=== PATIENT | female | born 1960 | race Caucasian/White ===

== ENCOUNTER 2016-04-28 17:08 | Inpatient (IN) | payer BC, SELFPAY ==
--- NOTE | ~2016-04-28 | HP ---
Unit #: [id number] #: [id number] Patient: PALAK GARCÍA [id number] [address] [place], [place] [address] [id number] E MR#: [id number] NAME: PALAK GARCÍA. ROOM: Age: 55 Sex: F Admission Date: 04/28/2016 : 1960 Attending Physician: Juan Leary M.D. Primary Care Physician: [facility]. HISTORY AND PHYSICAL CHIEF COMPLAINT Possible blood clot in the lung, sent by her primary care physician. HISTORY OF PRESENT ILLNESS The patient is a 55-year-old female with a history of diabetes and hypertension, who had a left knee medial meniscal tear repair on April 16. She had a left knee medial meniscectomy and extensive debridement, arthroplasty medial femoral condyle and hinging articular surface imminently to break off and become a loose body, and synovectomy. The patient presented to the primary care physician complaining of shortness of breath for four days. The patient also complains of intractable pain in the left knee associated with the surgery. The patient had a CT of the chest that showed patient had a right upper lobe pulmonary embolism. Venous Doppler is negative for any clot. The patient is being admitted for the above reasons. The patient continues to smoke cigarettes one and a half packs per day. She denies any productive cough, chest pain, palpitations, diaphoresis, or fever. The patient is being admitted for the above reasons. Patient also has a history of factor V deficiency with a strong family history of clots in the family. PAST MEDICAL HISTORY 1. Hypertension. 2. Diabetes. 3. Factor V deficiency. 4. Depression. PAST SURGICAL HISTORY 1. Cholecystectomy. 2. Hysterectomy. 3. Bladder repair. 4. Bilateral carpal tunnel release. 5. Left knee meniscectomy. HOME MEDICATIONS 1. Glucophage. 2. Cozaar. 3. Zoloft. 4. Toprol. 5. Claritin. 6. Aspirin. ALLERGIES PENICILLIN, LASIX, AND STATINS. Unit #: [id number] #: [id number] Patient: PALAK GARCÍA FAMILY HISTORY Bone marrow cancer in the parents. SOCIAL HISTORY Continues to smoke one and a half packs of cigarettes per day. Denies alcohol or any illicit drug abuse. REVIEW OF SYSTEMS A 14-point review of systems was performed and only pertinent positive findings are described above. The remaining are negative. PHYSICAL EXAMINATION GENERAL: Patient is lying in bed not in acute distress. VITAL SIGNS: Temperature 98.1, pulse 86, respiratory rate 16, blood pressure 111/68, and saturating 98% on room air. HEENT: Head atraumatic, normocephalic. Pupils equal, round, and reactive to light and accommodation. Extraocular movements are intact. Moist mucous membranes. NECK: Supple. No JVD. LUNGS: Decreased air entry at the bases. HEART: Regular rate and rhythm. ABDOMEN: Soft. Positive bowel sounds. EXTREMITIES: Status post left knee meniscectomy and calf tenderness. NEUROLOGIC: Alert, awake, and oriented. No gross focal motor deficit. DIAGNOSTIC STUDIES LABORATORY: Glucose 222, BUN 12, creatinine 0.7, sodium 138, potassium 4.3, chloride 101, bicarb 30, calcium 9.6, total protein 6.9, albumin 3.5, total bilirubin 0.7, AST 14, ALT 11, and alkaline phosphatase 93. INR is 1. Troponin less than 0.05. WBC 8.6, hemoglobin 13.8, hematocrit 42, and platelets 222,000. IMAGING: CT of the chest shows right upper lobe pulmonary embolism. Venous Doppler is negative for DVT. ASSESSMENT 1. Pulmonary embolism. 2. Status post left knee surgery. 3. Factor V deficiency. 4. Emphysema. PLAN Admit patient to inpatient with telemetry. Continue with anticoagulation with Lovenox 1 mg/kg subcutaneous q.12. Will check the echo for the straining. Check the factor V level. Continue with DuoNebs. Repeat the labs in the morning. Continue with nicotine patch for smoking cessation. Further recommendations will follow. Dictated by Ishan Monsalve TD: 04/28/2016 19:40 JOB #: [id number] Unit #: [id number] #: [id number] Patient: PALAK GARCÍA HISTORY AND PHYSICAL X X HISTORY AND PHYSICAL
--- NOTE | ~2016-04-28 | DS ---
Unit #: [id number] #: [id number] Patient: PALAK GARCÍA [id number] [address] [place], [place] [address] [id number] I MR#: [id number] NAME: APLAK GARCÍA. ROOM: 334 Age: 55 Sex: F Admission Date: 04/28/2016 : 1960 Discharge Date: 04/29/2016 Attending Physician: Renny Verma M.D. Primary Care Physician: [facility] DISCHARGE SUMMARY DISCHARGE DIAGNOSES 1. Pulmonary embolism on CTA per pulmonary embolism protocol. The pulmonary embolism was in the right upper lobe without any evidence of right heart strain. No evidence of pulmonary infarction. 2. Status post total knee replacement, April 16. 3. Stated history of factor V deficiency. 4. Emphysema, stable without acute exacerbation. CONSULTANTS None. DIAGNOSTIC STUDIES IMAGING: Consists of CT chest with contrast on 04/28/2016. Impression: The study is positive for acute pulmonary thromboembolism to the right upper lobe. There is no evidence of right heart strain and there is no evidence of pulmonary infarction. Findings were relayed to Ann in Dr. Gustafson' office at the time of this dictation. Also noted, but not mentioned in the report is potentially a nodule within the left lobe of the thyroid gland measuring up to about 8 mm in size. This can be better assessed with dedicated thyroid ultrasound on a nonemergent outpatient basis. ADDENDUM, JOB [id number] LABORATORY: BMP: Glucose 144, BUN 14, creatinine 0.6, sodium 144, potassium 4.6, chloride 105, CO2 27, calcium 9.7, total protein 6.9, albumin 3.5, total bilirubin 0.7, AST 14, ALT 19, alkaline phosphatase 93. The patient had PT assessed which was 10.7. INR is 1.0. PTT is 26.8. CBC: WBC 7.6, RBC 4.85, hemoglobin 13.6, hematocrit 31.9, MCV 86.5, MCH 28.2, MCHC 32.5, RDW 14.4, platelets 207, MPV 8.7. IMAGING: Ultrasound of the lower extremities. Impression is negative unilateral left lower extremity venous Doppler. No evidence of a DVT. Complex appearing Milan cyst about 5 x 1.5 x 2 cm in size. HOSPITAL COURSE The patient is a pleasant 55-year-old female with past medical history of diabetes and essential hypertension who had a left medial meniscus tear repair on April 16. She had a left knee medial meniscectomy and extensive debridement, arthroplasty medial femoral condyle and hinging articular surface imminently to break off and became a loose body and synovectomy. The patient presented to her primary care physician complaining of shortness of breath for four days. The patient also complained of intractable pain in the left knee associated with the surgery. The patient had CT of the chest that showed the patient had a Unit #: [id number] #: [id number] Patient: PALAK GARCÍA right upper lobe pulmonary embolism. Venous Doppler was negative for any clot. The patient was admitted for pulmonary embolism. She continues to smoke one and a half packs daily. We spoke about this. The patient tells me that she is ready to quit and will be utilizing a nicotine patch for it. The patient does have history of factor V deficiency with a strong family history of clots in the family but she has not seen a consulting services manager in the past. At this time, the patient is stable and I will be discharging the patient and checking for the hart of Eliquis. If this is acceptable, I will be discharging the patient on Eliquis. If not, we will opt for Xarelto. DISCHARGE CONDITION Stable. DISCHARGE FOLLOWUP To follow up with family doctor within one to two weeks. I have spoken with consulting services manager, Dr. Gomez, who states that patient is stable for discharge. He does not see her in the hospital but their office will follow up with her outpatient for any further workup and to follow the factor V deficiency. DISPOSITION To home. DIET Heart Healthy with consistent carb or per [place] [employer] recommended diet. DISCHARGE MEDICATIONS 1. Tramadol 60 mg orally three times daily. 2. Aspirin 325 mg orally daily. 3. Metoprolol 25 mg orally daily. 4. Loratadine 10 mg orally daily. 5. Sertraline 100 mg orally daily. 6. Metformin 500 mg orally daily. This can be restarted on May 01, as she had gotten contrast for that CT chest. 7. Losartan 25 mg orally daily. 8. At this time, I am checking for Eliquis. If it is approved, she can have 10 mg orally twice daily for seven days and then 5 mg daily there on after. I have given her a prescription for three months. If this is not acceptable, then she can have Xarelto. A starter pack will be given, 15 mg orally twice daily for 21 days and then 20 mg orally daily. I will give her refills of three months. So, either Eliquis or Xarelto, whichever one is affordable. Dictated by... Haydee Redman PA-C for Ishan Sampson/bertram TD: 04/30/2016 07:40 JOB #: [id number] Unit #: [id number] #: [id number] Patient: ALLEN GARCÍAFATOUMATA Abad DISCHARGE SUMMARY X X DISCHARGE SUMMARY
--- NOTE | ~2016-04-28 | EKG ---
PATIENT: PALAK GARCÍA UNIT #: [id number] Ventricular Rate: 74 BPM Atrial Rate: 74 BPM P-R Interval: 188 ms QRS Duration: 80 ms Q-T Interval: 398 ms QTC Calculation(Bezet): 441 ms P [place]: 55 degrees Calculated R [place]: 66 degrees Calculated T [place]: 84 degrees Diagnosis Line: Normal sinus rhythm Diagnosis Line: Normal ECG Diagnosis Line: When compared with ECG of 09-APR-2016 11:12, Diagnosis Line: No significant change was found Diagnosis Line: Confirmed by GIFTY MOULTON MD ([id number]) on 04/30/2016 Diagnosis Line: 5:31:38 PM INTERPRETING MD: KENNEY GALLAGHER
[2016-04-28 16:58] LABS: BASOPHIL# 0.1 X10e3 (0-0.3); BASOPHIL% 0.9 % (0-2.5); EOSINOPHIL# 0.2 X10e3 (0-0.7); EOSINOPHIL% 1.9 % (0.0-7.0); HEMOGLOBIN 13.8 gm/dL (12.0-16.0); LYMPHOCYTE# 1.6 X10e3 (1.0-3.5); LYMPHOCYTE% 18.9 % (17.0-45.0); MEAN CELL VOLUME 87.1 FL (83-96); MEAN CORPUSCULAR HEMOGLOBIN 28.5 PG (28-34); MEAN CORPUSCULAR HGB CONC 32.7 g/dL (30-36); MEAN PLATELET VOLUME 8.9 FL (6.5-11.5); MONOCYTE# 0.4 X10e3 (0-1.0); MONOCYTE% 4.7 % (3.0-12.0); NEUTROPHIL# 6.3 X10e3 (1.5-7.1); NEUTROPHIL% 73.6 % (40-75); PLATELET COUNT 222 X10e3 (140-420); RED BLOOD COUNT 4.82 X10e (3.90-5.30); RED CELL DISTRIBUTION WIDTH 14.3 % (11.0-15.5); WHITE BLOOD COUNT 8.6 X10e3 (4.0-10.5)
[2016-04-28 17:05] LABS: DIFF IND NO
[~2016-04-28 17:08] MED LIST changes: -ELIQUIS5 MG PO; -NICOTINE TRANSD21 MG TOP; -PROTONIX PO
[2016-04-28 17:09] LABS: PARTIAL THROMBOPLASTIN TIME 26.8 SECONDS (23.5-31.3); PROTHROMBIN TIME (PATIENT) 10.7 SECONDS (9.6-11.5)
[2016-04-28 17:19] LABS: ALBUMIN SERUM 3.5 g/dL (3.5-5.0); ALKALINE PHOSPHATASE 93 U/L (32-92); ALT (SGPT) 11 U/L (10-40); AST (SGOT) 14 U/L (10-42); BILIRUBIN,TOTAL 0.7 mg/dL (0.2-2.0); BLOOD UREA NITROGEN 12 mg/dL (9-23); BUN/CREATININE RATIO 17.14; CALCIUM SERUM 9.6 mg/dL (8.4-10.2); CARBON DIOXIDE 30 mmol/L (22-31); CHLORIDE 101 mmol/L (100-111); CREATININE SERUM 0.7 mg/dL (0.6-1.4); GLOM FILT RATE Estimated ABOVE60 mL/min (>60); GLUCOSE FASTING 222 mg/dL (70-110); POTASSIUM 4.3 mmol/L (3.5-5.1); PROTEIN TOTAL SERUM 6.9 g/dL (6.0-8.3); SODIUM 138 mmol/L (135-145)
[2016-04-28 17:25] LABS: BILIRUBIN, DIRECT <0.1 mg/dL (0.0-0.2); BILIRUBIN,INDIRECT 0.6 mg/dL (0.0-0.9)
[2016-04-28 18:41] LABS: POC - CKMB <1.0 ng/mL (0.0-7.9); POC - TROPONIN <0.05 ng/mL (<=0.05)
[2016-04-29 06:25] LABS: BASOPHIL# 0.1 X10e3 (0-0.3); BASOPHIL% 1.3 % (0-2.5); EOSINOPHIL# 0.3 X10e3 (0-0.7); EOSINOPHIL% 3.5 % (0.0-7.0); HEMATOCRIT 41.9 % (35.0-45.0); HEMOGLOBIN 13.6 gm/dL (12.0-16.0); LYMPHOCYTE# 2.1 X10e3 (1.0-3.5); MEAN CELL VOLUME 86.5 FL (83-96); MEAN CORPUSCULAR HEMOGLOBIN 28.2 PG (28-34); MEAN CORPUSCULAR HGB CONC 32.5 g/dL (30-36); MEAN PLATELET VOLUME 8.7 FL (6.5-11.5); MONOCYTE# 0.4 X10e3 (0-1.0); MONOCYTE% 5.9 % (3.0-12.0); NEUTROPHIL# 4.8 X10e3 (1.5-7.1); NEUTROPHIL% 62.3 % (40-75); PLATELET COUNT 207 X10e3 (140-420); RED BLOOD COUNT 4.85 X10e (3.90-5.30); RED CELL DISTRIBUTION WIDTH 14.4 % (11.0-15.5); WHITE BLOOD COUNT 7.6 X10e3 (4.0-10.5)
[2016-04-29 06:32] LABS: DIFF IND NO
[2016-04-29 07:12] LABS: BLOOD UREA NITROGEN 14 mg/dL (9-23); BUN/CREATININE RATIO 23.33; CALCIUM SERUM 9.7 mg/dL (8.4-10.2); CARBON DIOXIDE 27 mmol/L (22-31); CHLORIDE 105 mmol/L (100-111); CREATININE SERUM 0.6 mg/dL (0.6-1.4); GLOM FILT RATE Estimated ABOVE60 mL/min (>60); GLUCOSE FASTING 141 mg/dL (70-110); POTASSIUM 4.6 mmol/L (3.5-5.1); SODIUM 144 mmol/L (135-145)
[2016-04-29] MEDS ORDERED: NICOTINE TRANSD21 MG TOP (12:47)
[2016-04-29] MEDS ORDERED: PROTONIX PO (12:49)
[2016-04-29] MEDS ORDERED: ELIQUIS5 MG PO ×2 (12:56→12:57)
== END 2016-04-29 16:08 | disposition home or self-care (01) | DRG 176 ==
LOC: CED 17:08 → CEDOF 18:50 → C3A PCU 20:30
PROVIDERS: Emergency Medicine; Internal Medicine
PROC: B24BYZZ Ultrasonography of Heart with Aorta using Other Contrast (ICD-10-PCS; principal; 2016-04-29)
DX: I26.99 Other pulmonary embolism without acute cor pulmonale (principal); D68.2 Hereditary deficiency of other clotting factors; I10 Essential (primary) hypertension; E11.9 Type 2 diabetes mellitus without complications; Z79.84 Long term (current) use of oral hypoglycemic drugs; F32.9 Major depressive disorder, single episode, unspecified; Z90.49 Acquired absence of other specified parts of digestive tract; Z90.710 Acquired absence of both cervix and uterus; Z79.82 Long term (current) use of aspirin; Z88.0 Allergy status to penicillin; F17.210 Nicotine dependence, cigarettes, uncomplicated; J43.9 Emphysema, unspecified; Z96.659 Presence of unspecified artificial knee joint
CPT/HCPCS: 36415; 74230; 80048; 80076; 82553; 84484; 85025; 85220; 85610; 85730; 92610; 92611; 93005; 93306; 94760; 96372; 97162; 99285; G8996-GN; G8997-GN; G8998-GN; J1650

== ENCOUNTER → 2016-04-28 | Outpatient (CLI) | payer BC ==
[~2016-04-28] MED LIST: ACETAMINOPHEN PR; ALBUTEROL17 GM INH; BACTRIM DS TABL1 TAB PO; CLARITIN10 M2 PO; COZAAR; ELIQUIS5 MG PO; GLUCOPHAGE500 MG PO; MEDROL PO; NICOTINE TRANSD21 MG TOP; PROTONIX PO; ST. JOSEPH ASP325 MG PO; TOPROL XL; TRAMADOL HCL50 M2 PO; ZOLOFT100 MG PO
--- NOTE | ~2016-04-28 | US85 ---
[facility] A Service of [facility] RADIOLOGY TEXT RESULTS PATIENT: PALAK GARCÍA LOCATION: [facility] : 58 UNIT #: [id number] AGE: [address]: Hakeem Gustafson MD SEX: F ORDER DR: [id number] [facility] [address] [place], [place] [address] [id number] O MR#: [id number] Acc #: [id number] NAME: PALAK GARCÍA. : 1960 SEX: F STUDY DATE/TIME: 04/28/2016 14:42 UNIT: CCA ROOM: STUDY DESCRIPTION: [facility] [employer] Attending Physician: Hakeem Gustafson M.D. Referring Physician: Hakeem Gustafson M.D. Ordering Physician: Hakeem Gustafson M.D. [facility] REPORT This report is preliminary unless electronic signature is present EXAM Bilateral lower extremity venous Doppler. DATE OF EXAM 04/28/2016 CLINICAL HISTORY Left leg pain for 2 days, left calf pain and swelling. PROCEDURE Unilateral left lower extremity venous Doppler with hebert-scale imaging, color-Doppler flow imaging and Doppler waveform analysis. FINDINGS There is normal color flow, compressibility and where appropriate, respiratory phasicity and/or augmentation throughout the entire left lower extremity deep venous system. There is a large Milan cyst, about 5 x 1.5 x 2 cm in size, and complex in appearance. IMPRESSION 1. Negative unilateral left lower extremity venous Doppler. No evidence of a DVT. 2. Complex appearing Milan cyst, about 5 x 1.5 x 2 cm in size. Dictated by... Hussain Akhtar M.D. THIS IS AN ELECTRONICALLY VERIFIED REPORT Hussain Akhtar M.D. at 04/29/2016 11:48 AM TEV/jt [facility] A Service of [facility] RADIOLOGY TEXT RESULTS PATIENT: PALAK GARCÍA LOCATION: [facility] : 58 UNIT #: [id number] AGE: [address]: Hakeem Gustafson MD SEX: F ORDER DR: TD: 04/28/2016 21:57 JOB #: [id number] MEDICAL IMAGING REPORT COPY
--- NOTE | ~2016-04-28 | CT55 ---
[facility] A Service [facility] RADIOLOGY TEXT RESULTS PATIENT: PALAK GARCÍA LOCATION: [facility] : 58 UNIT #: [id number] AGE: [address]: Hakeem Gustafson MD SEX: F ORDER DR: [id number] [facility] [address] [place], [place] [address] [id number] O MR#: [id number] Acc #: [id number] NAME: PALAK GARCÍA. : 1960 SEX: F STUDY DATE/TIME: 04/28/2016 14:05 UNIT: [facility] ROOM: STUDY DESCRIPTION: CT Chest W Con Attending Physician: Hakeem Gustafson M.D. Referring Physician: Hakeem Gustafson M.D. Ordering Physician: Hakeem Gustafson M.D. Primary Care Physician: [facility] MEDICAL IMAGING REPORT This report is preliminary unless electronic signature is present EXAM CT of the chest with contrast. DATE OF EXAM 04/28/2016 INDICATION Spitting up blood as well as pain and swelling in the left calf. Started last week. TECHNIQUE Axial CT images were obtained from the thoracic inlet through the dome of the diaphragm following the administration of intravenous contrast material. NOTE: This CT exam was performed with one or more of the following radiation dose reduction techniques: automatic exposure control, adjustment of mA and/or kV according to patient size, and iterative reconstruction. FINDINGS The study is positive for acute pulmonary thromboembolus involving pulmonary arterial branches to the right upper lobe. These appear to be nonocclusive thrombi. There was no evidence of right heart strain. There is no pleural or pericardial effusion. The thyroid gland, trachea and esophagus are within normal limits. Lungs appear clear with no focal infiltrates identified. Images through the upper abdomen demonstrate changes of prior cholecystectomy. No acute abnormalities are seen within the upper abdomen. Review of bony windows does not demonstrate any aggressive osseous abnormalities. IMPRESSION 1. The study is positive for acute pulmonary thromboembolus to the right [facility] A Service of [facility] RADIOLOGY TEXT RESULTS PATIENT: PALAK GARCÍA LOCATION: [facility] : 58 UNIT #: [id number] AGE: [address]: Hakeem Gustafson MD SEX: F ORDER DR: upper lobe. There is no evidence of right heart strain, and there is no evidence of pulmonary infarction. Findings were relayed to Ann in Dr. Gustafson's office at the time of this dictation. 2. Also noted but not mentioned in the report is potentially a nodule within the left lobe of the thyroid gland, measuring up to about 8 mm in size and this can be better assessed with dedicated thyroid ultrasound on a nonemergent outpatient basis. Dictated by... Cherelle Rojas M.D. THIS IS AN ELECTRONICALLY VERIFIED REPORT Cherelle Rojas M.D. at 04/29/2016 10:48 AM MARIO/massiel TD: 04/28/2016 19:14 JOB #: [id number] MEDICAL IMAGING REPORT COPY
[2016-04-28 14:20] LABS: POC - CREATININE 0.81 mg/dL (0.44-1.03); POC - GFR >60.0 mL/min (>60)
== END | disposition home or self-care (01) ==
LOC: CCAT 12:40
PROVIDERS: Orthopaedic Surgery
DX: R04.2 Hemoptysis (principal); M79.89 Other specified soft tissue disorders; M79.605 Pain in left leg; I26.99 Other pulmonary embolism without acute cor pulmonale; M71.22 Synovial cyst of popliteal space [Baker], left knee
CPT/HCPCS: 71260; 82565; 93971; Q9967

== ENCOUNTER 2016-09-24 13:51 | Emergency (ER) | payer MEDICAID ==
[~2016-09-24] VITALS: Ht 160 cm; Wt 88.5 kg
--- NOTE | ~2016-09-24 | CT71 ---
[facility] A Service [facility] RADIOLOGY TEXT RESULTS PATIENT: PALAK GARCÍA LOCATION: [facility] : 58 UNIT #: [id number] AGE: [address]: Akash Mazariegos MD SEX: F ORDER DR: [id number] [place] [address] [place], [place] [address] [id number] E MR#: [id number] Acc #: [id number] NAME: PALAK GARCÍA. : 1960 SEX: F STUDY DATE/TIME: 09/24/2016 16:15 UNIT: [facility] ROOM: STUDY DESCRIPTION: CT Head Wo Contrast Attending Physician: Akash Mazariegos M.D. Ordering Physician: Akash Mazariegos M.D. Primary Care Physician: Neida Crawford M.D. MEDICAL IMAGING REPORT This report is preliminary unless electronic signature is present EXAM CT scan of the brain without contrast INDICATIONS Dizziness for 2 days. TECHNIQUE Axial noncontrast images were obtained from the skull base to the vertex. This CT exam was performed with one or more of the following radiation dose reduction techniques: Automatic exposure control, adjustment of mA and/or kV according to patient size, and iterative reconstruction. FINDINGS Ventricular size and configuration are normal. There is no evidence of acute infarct or hemorrhage. There are no extraaxial fluid collections. No mass lesion or mass effect is seen. There are no skull fractures. IMPRESSION Normal noncontrast head CT. Dictated by... Edmond Alva M.D. THIS IS AN ELECTRONICALLY VERIFIED REPORT Edmond Alva M.D. at 09/25/2016 8:16 AM FEL/psc TD: 09/24/2016 21:49 JOB #: [id number] MEDICAL IMAGING REPORT [facility] A Service [facility] RADIOLOGY TEXT RESULTS PATIENT: PALAK GARCÍA LOCATION: [facility] : 58 UNIT #: [id number] AGE: [address]: Akash Mazariegos MD SEX: F ORDER DR: Page 1 of 1 COPY
--- NOTE | ~2016-09-24 | CT16 ---
[facility] A Service of [facility] RADIOLOGY TEXT RESULTS PATIENT: PALAK GARCÍA LOCATION: [facility] : 58 UNIT #: [id number] AGE: [address]: Akash Mazariegos MD SEX: F ORDER DR: [id number] [facility] [address] [place], [place] [address] [id number] E MR#: [id number] Acc #: [id number] NAME: PALAK GARCÍA. : 1960 SEX: F STUDY DATE/TIME: 09/24/2016 16:19 UNIT: [facility] ROOM: STUDY DESCRIPTION: CT Angio Chest for PE Attending Physician: Akash Maazriegos M.D. Ordering Physician: Akash Mazariegos M.D. Primary Care Physician: Neida Crawford M.D. MEDICAL IMAGING REPORT This report is preliminary unless electronic signature is present EXAM Chest CTA, 09/24/2016 INDICATION Shortness of air and cough with chest pain and dizziness over the last 2 days. Some hemoptysis this morning. Prior history of pulmonary embolism. TECHNIQUE Axial images were obtained through the chest following IV contrast administration. 3-D reformats were obtained. Comparison made with 04/28/2016. This CT exam was performed with one or more of the following radiation dose reduction techniques: automatic exposure control, adjustment of mA and/or kV according to patient size, and iterative reconstruction. FINDINGS No definite pulmonary embolism is seen today, and there is no aortic dissection. There is no pleural or pericardial effusion. No adenopathy is seen. The lungs remain clear. Upper abdomen shows changes of cholecystectomy. IMPRESSION No pulmonary embolism or aortic dissection. No active disease in the chest. Dictated by... Jaun Larry Jr., M.D. THIS IS AN ELECTRONICALLY VERIFIED REPORT Juan Larry Jr., M.D. at 09/25/2016 4:34 PM [facility] A Service [facility] RADIOLOGY TEXT RESULTS PATIENT: PALAK GARCÍA LOCATION: [facility] : 58 UNIT #: [id number] AGE: [address]: Akash Mazariegos MD SEX: F ORDER DR: JALYN/jose manuel TD: 09/24/2016 21:40 JOB #: [id number] MEDICAL IMAGING REPORT Page 1 of 1 COPY
--- NOTE | ~2016-09-24 | CR72 ---
[facility] A Service of [facility] RADIOLOGY TEXT RESULTS PATIENT: PALAK GARCÍA LOCATION: [facility] : 58 UNIT #: [id number] AGE: [address]: Akash Mazariegos MD SEX: F ORDER DR: [id number] [facility] [address] [place], [place] [address] [id number] E MR#: [id number] Acc #: [id number] NAME: PALAK GARCÍA. : 1960 SEX: F STUDY DATE/TIME: 09/24/2016 14:42 UNIT: [facility] ROOM: STUDY DESCRIPTION: CR Chest Single View Portable Attending Physician: Akash Mazariegos M.D. Ordering Physician: Akash Mazariegos M.D. Primary Care Physician: Neida Crawford M.D. MEDICAL IMAGING REPORT This report is preliminary unless electronic signature is present EXAM Portable chest x-ray, 09/24/2016. HISTORY Dyspnea. Short of air. Dizziness. Spitting up blood today. AP radiograph of the chest is presented. COMPARISON STUDIES 08/16/2011 FINDINGS Degenerative changes in the spine. No acute appearing bone abnormality. The heart is normal in size. Mediastinal contours are normal. Lungs appear slightly hyperinflated. Correlate with any known chronic airway disease. Patient gives a history of tobacco usage. The mild hyperinflation of the lungs may reflect underlying COPD. There is no evidence of acute pulmonary disease, pleural effusion or pneumothorax. No suspicious nodule. Dictated by... Jose Geiger M.D. THIS IS AN ELECTRONICALLY VERIFIED REPORT Jose Geiger M.D. at 09/28/2016 10:43 AM GAY/massiel TD: 09/24/2016 19:24 JOB #: [id number] [facility] A Service [facility] RADIOLOGY TEXT RESULTS PATIENT: PALAK GARCÍA LOCATION: [facility] : 58 UNIT #: [id number] AGE: [address]: Akash Mazariegos MD SEX: F ORDER DR: MEDICAL IMAGING REPORT Page 1 of 1 COPY
--- NOTE | ~2016-09-24 | EKG ---
PATIENT: PALAK GARCÍA UNIT #: [id number] Ventricular Rate: 75 BPM Atrial Rate: 75 BPM P-R Interval: 156 ms QRS Duration: 76 ms Q-T Interval: 388 ms QTC Calculation(Bezet): 433 ms P [place]: 29 degrees Calculated R [place]: 39 degrees Calculated T [place]: 77 degrees Diagnosis Line: Normal sinus rhythm Diagnosis Line: Normal ECG Diagnosis Line: When compared with ECG of 28-APR-2016 16:57, Diagnosis Line: No significant change was found Diagnosis Line: Confirmed by LUCAS MONTERO MD ([id number]) on 09/26/2016 Diagnosis Line: 8:22:03 AM INTERPRETING MD: KYLAH GALLAGHER
[~2016-09-24 13:51] MED LIST changes: +ELIQUIS5 MG PO; +NICOTINE TRANSD21 MG TOP; +PROTONIX PO
[2016-09-24 14:59] LABS: BASOPHIL% 0.6 % (0-2.5); EOSINOPHIL# 0.2 X10e3 (0-0.7); EOSINOPHIL% 2.1 % (0.0-7.0); HEMATOCRIT 44.1 % (35.0-45.0); HEMOGLOBIN 14.7 gm/dL (12.0-16.0); LYMPHOCYTE# 2.2 X10e3 (1.0-3.5); LYMPHOCYTE% 29.5 % (17.0-45.0); MEAN CELL VOLUME 85.9 FL (83-96); MEAN CORPUSCULAR HEMOGLOBIN 28.6 PG (28-34); MEAN CORPUSCULAR HGB CONC 33.3 g/dL (30-36); MEAN PLATELET VOLUME 8.9 FL (6.5-11.5); MONOCYTE# 0.4 X10e3 (0-1.0); MONOCYTE% 5.2 % (3.0-12.0); NEUTROPHIL# 4.8 X10e3 (1.5-7.1); NEUTROPHIL% 62.6 % (40-75); PLATELET COUNT 236 X10e3 (140-420); RED BLOOD COUNT 5.13 X10e (3.90-5.30); RED CELL DISTRIBUTION WIDTH 14.5 % (11.0-15.5); WHITE BLOOD COUNT 7.6 X10e3 (4.0-10.5)
[2016-09-24 15:01] LABS: DIFF IND NO
[2016-09-24 15:10] LABS: POC - CKMB <1.0 ng/mL (0.0-7.9); POC - TROPONIN <0.05 ng/mL (<=0.05)
[2016-09-24 15:21] LABS: PROTHROMBIN TIME (PATIENT) 11.3 SECONDS (10.0-11.7)
[2016-09-24 15:30] LABS: BILIRUBIN, DIRECT 0.1 mg/dL (0.0-0.2); BILIRUBIN,INDIRECT 0.3 mg/dL (0.0-0.9); BILIRUBIN,TOTAL 0.4 mg/dL (0.2-2.0); BUN/CREATININE RATIO 13.75; CALCIUM SERUM 9.9 mg/dL (8.4-10.2); CREATININE SERUM 0.8 mg/dL (0.6-1.4); GLOM FILT RATE Estimated 81.9 mL/min (>60); POTASSIUM 3.7 mmol/L (3.5-5.1); PROTEIN TOTAL SERUM 7.6 g/dL (6.0-8.3)
== END 2016-09-24 17:28 | disposition home or self-care (01) ==
LOC: CED 13:51
PROVIDERS: Emergency Medicine
DX: R04.2 Hemoptysis (principal); J40 Bronchitis, not specified as acute or chronic; E11.9 Type 2 diabetes mellitus without complications; E78.5 Hyperlipidemia, unspecified; F17.200 Nicotine dependence, unspecified, uncomplicated; I10 Essential (primary) hypertension; Z86.711 Personal history of pulmonary embolism; Z90.49 Acquired absence of other specified parts of digestive tract; Z90.710 Acquired absence of both cervix and uterus; Z79.899 Other long term (current) drug therapy; Z88.0 Allergy status to penicillin; Z88.2 Allergy status to sulfonamides; Z88.1 Allergy status to other antibiotic agents; Z88.8 Allergy status to other drugs, medicaments and biological substances; Z91.040 Latex allergy status; Z79.82 Long term (current) use of aspirin; Z79.84 Long term (current) use of oral hypoglycemic drugs
CPT/HCPCS: 36415; 70450; 71010; 71275; 80048; 80076; 82553; 83605; 83880; 84484; 85025; 85610; 87040; 93005; 96360; 99285; Q9967